=== PATIENT | female | born 1955 | race Caucasian/White ===

== ENCOUNTER 2017-06-03 16:25 | Emergency (ER) | payer OTHER ==
[~2017-06-03] VITALS: Ht 160 cm; Wt 78.2 kg
[2017-06-03 16:37] VITALS: BP 133/83; PULSE 88; RESP 16; O2SAT 98
[2017-06-03 17:02] LABS: BASOPHILS % (AUTO) 0.1 % (0-3); EOSINOPHILS % (AUTO) 2.1 % (0-5); MONOCYTES % (AUTO) 7.1 % (4-12); Mean Corpuscular Hemoglobin 31.4 pg (27.0-35.0); Mean Corpuscular Volume 90.3 fL (81-100); NEUTROPHILS % (AUTO) 77.5 % (40-74); Platelet Count 382 bil/L (150-400)
[2017-06-03 17:21] LABS: Magnesium 2.2 mg/dL (1.6-2.6)
--- NOTE | 2017-06-03 19:17 | ED.REPORT ---
HPI-Abd Pain F 40 and Over Date of Service Jun 03, 2017 ED Provider: Freddie Egan MD Pt is a 61 year old female who presents to the ED with concerns for abdominal pain, onset 4 days ago. She reports that her abdominal pain in localized to her lower abdomen and has been worsening since its onset. Pt states that pain is associated with bloating. She reports a low grade fever, chills, mild nausea, constipation, back pain, and stressful life events, but denies any vomiting, chest pain, diaphoresis, dysuria or shortness of breath. She reports that she was placed on an antibiotic by her PCP for possible dx of diverticulitis. Nursing Notes Stated Complaint: ABDOMINAL PAIN Chief Complaint: Female Abdominal Pain Nursing Notes Reviewed: Yes Allergies: Coded Allergies: No Known Allergies (Verified , 02/29/08) Scheduled Ciprofloxacin (Ciprofloxacin) 500 Mg Tablet 500 MG PO BID Metronidazole (Flagyl) 500 Mg Tablet 500 MG PO Q8H General Time Seen by MD: 19:15 Chief Complaint Abdominal pain Hx Obtained From: Patient Arrived By: Walk-in Sudden in Onset?: Yes Onset Occurred: 4 days ago Symptom Duration: Since onset Location: : Abdomen lower: Diffuse Quality: Painful Severity: Current: Moderate Severity: Maximum: Moderate Similar Sx Previous: Yes Past Medical History Past Medical History Healthy Past Surgical History Denies Review of Systems Constitutional: Reports: Chills, Fever, Denies: Malaise, Weakness - generalized Respiratory: Denies: Non-productive cough, Shortness of breath, Wheezing Cardiovascular: Denies: Chest pain, Syncope GI: Reports: Abdominal pain, Constipation, Nausea, Denies: Diarrhea, Vomiting Female: Denies: Dysuria, Flank pain, Urinary frequency, Urinary urgency Musculoskeletal: Reports: Back pain Complete sys rev & neg: except as marked. Physical Exam Vital Signs Vital Signs (First) Date Time Temp Pulse Resp B/P Pulse Ox O2 Delivery O2 Flow Rate FiO2 06/03/17 16:37 37.1 88 16 133/83 98 Room Air Initial VS: Reviewed Head / Eyes: Atraumatic, Normocephalic, PERRL ENT: Mucous membranes moist, Conjunctiva normal, No scleral icterus Neck: Supple, Non-tender, Full range of motion Skin: Warm, Dry, No cyanosis Neurologic: Alert, Oriented, Nonfocal General/Constitutional: Awake, Alert, Well appearing Respiratory / Chest: Atraumatic, Breath sounds NL, Breath sounds = bilat, No respiratory distress Cardiovascular: Heart rate NL, Regular rhythm, Heart sounds NL, No gallop, No murmurs, No rubs Abdomen: Atraumatic, Soft, No guarding, No rebound Tenderness/Guarding/Rebound: Positive: Tender diffuse Increased lower abdominal tenderness Back: Inspection NL, Non-tender, No CVA tenderness Interpretation & Diagnostics Lab Results Interpretation Result Diagram: 06/03/17 1650 06/03/17 1650 Test 06/03/17 16:50 06/03/17 20:22 White Blood Count 13.4th/mm3 (3.8-10.1) Red Blood Count 4.21mil/mm3 (3.90-5.20) Hemoglobin 13.2g/dL (12.0-15.6) Hematocrit 38.0% (35.0-46.0) Mean Corpuscular Volume 90.3fL (81-100) Mean Corpuscular Hemoglobin 31.4pg (27.0-35.0) Mean Corpuscular Hemoglobin Concent 34.7% (32.0-37.0) Red Cell Distribution Width 12.0% (12.3-15.4) Platelet Count 382bil/L (150-400) Neutrophils (%) (Auto) 77.5% (40-74) Lymphocytes (%) (Auto) 13.0% (14-46) Monocytes (%) (Auto) 7.1% (4-12) Eosinophils (%) (Auto) 2.1% (0-5) Basophils (%) (Auto) 0.1% (0-3) Sodium Level 137mEq/L (134-144) Potassium Level 3.6mEq/L (3.5-5.2) Chloride Level 100mEq/L (97-108) Carbon Dioxide Level 22mmol/L (18-29) Blood Urea Nitrogen 11mg/dL (8-27) Creatinine 0.61mg/dL (0.57-1.00) Estimat Glomerular Filtration Rate 143mL/min (>59) Glucose Level 110mg/dL (60-99) Calcium Level 9.3mg/dL (8.5-10.1) Magnesium Level 2.2mg/dL (1.6-2.6) Total Bilirubin 0.7mg/dL (0.0-1.2) Aspartate Amino Transf (AST/SGOT) 19U/L (0-50) Alanine Aminotransferase (ALT/SGPT) 14U/L (0-32) Alkaline Phosphatase 74U/L (25-165) Total Protein 7.6g/dL (6.4-8.4) Albumin 4.2g/dL (3.4-5.0) Lipase 41U/L (13-60) Hold [place] Top Tube Received (Received) Urine Color Yellow (YELLOW) Urine Appearance Hazy (CLEAR,HAZY) Urine pH 6.0 (5.0-8.0) Urine Specific [place] 1.015 (1.003-1.035) Urine Protein Negativemg/dL (NEG,TRACE) Urine Glucose (UA) Negativemg/dL (NEGATIVE) Urine Ketones 15mg/dL (NEGATIVE) Urine Occult Blood Trace (NEGATIVE) Urine Nitrite Negative (NEGATIVE) Urine Bilirubin Negative (NEGATIVE) Urine Urobilinogen Normalmg/dL (NORMAL) Urine Leukocyte Esterase Negative (NEGATIVE) Urine RBC 0-2/hpf (0-2) Urine WBC 0-5/hpf (0-5) Urine Epithelial Cells Few/hpf (NONE-MOD) Urine Crystals None seen (NONE SEEN) Urine Bacteria None/hpf (NONE-FEW) Urine Hyaline Casts None/lpf (NONE) Urine Granular Casts None seen (NONE SEEN) Urine Waxy Casts None seen (NONE SEEN) Urine Red Blood Cell Casts None seen (NONE SEEN) Urine White Blood Cell Casts None seen (NONE SEEN) Urine Mucus None seen (None Seen) Urine Trichomonas None seen (NONE SEEN) Urine Yeast None (NONE SEEN) Urinalysis Comment None Urine Culture Reflexed Not indicated CT Abd / Pelvis Interpretation IMPRESSION: 1. Non-perforated sigmoid colon diverticulitis. No abscess formation. 2. 3.8 x 2.4 cm enhancing left adrenal nodule is indeterminate for adenoma versus malignancy. If no outside institution chest or abdomen CTs can be obtained for direct comparison, recommend further characterization with nonemergent adrenal protocol pre- and post contrast abdominal CT or noncontrast abdominal MRI. Dictated by: Francis Hobson M.D. on 06/03/2017 at 20:22 Interpretation / Wet Read by: Interpret - Radiologist Re-Eval/Medical Decision Med Decision/Clinical Course 61-year-old female presenting with lower abdominal pain times several days. CT shows nonperforated acute diverticulitis. Patient with minimal tenderness. She was treated with Cipro Flagyl with return precautions follow up with primary doctor Tuesday. [place] diet. Return precautions given. Source of Hx: Old records Re-Evaluation/Progress : Time of Eval: 21:29 Re-Evaluation/Progress Note: Pt is rechecked and informed of her CT scan and the plan to discharge her at this time. Counseled Regarding: Diagnosis, Lab results, Need for follow-up, When/why to return to ED Discharge & Departure Primary Impression: Diverticulitis Disposition: Home Discharge Condition All VS Reviewed: Yes Condition: Stable Patient Instructions: Diverticulitis (ED) Additional Instructions: Take the Ciproflagyl as prescribed. Follow up with your primary care provider on Tuesday, as well as general surgery. Eat a bland diet, and return to the emergency room with any fevers, worsening abdominal pain, or any other worsening or concerning symptoms. Referrals: Cameron Johnson MD (PCP) Radha Attestation Portions of this note were transcribed by Debra Moreau. I, Dr. Egan personally performed the history, physical exam and medical decision-making; I reviewed and confirmed the accuracy of the information in the transcribed note. Signed by:Radha Rothman, 06/03/2017 [id number] copies to: Cameron Johnson MD, Ben M MD Jun 03, 2017 19:17 JOSH MOREAU Jun 03, 2017 19:24
[2017-06-03] MEDS ORDERED: 0.9% Sodium Chloride 1,000 ML IV ONE (19:24)
[2017-06-03] MEDS ORDERED: Ondansetron 2 mg/mL 2 mL Inj IVPUSH PRN (19:25)
[2017-06-03] MEDS ORDERED: HYDROmorphone 1 mg/mL Inj IM PRN (20:30)
--- NOTE | 2017-06-03 20:32 | DRSVH ---
PROCEDURE: CT ABDOMEN AND PELVIS WITH CONTRAST ([id number]) INDICATIONS: 61 year-old female with lower abdominal pain and leukocytosis. TECHNIQUE: After the administration of intravenous contrast, 5 mm thick sections acquired from the diaphragm to the symphysis. 5 mm coronal and sagittal reformats were acquired. For radiation dose reduction, the following was used: automated exposure control, adjustment of mA and/or kV according to patient siz e. COMPARISON: None. FINDINGS: Image quality: Excellent. ABDOMEN: Lung bases: Lung bases are clear. Heart size is normal. Solid organs: Liver and spleen are normal in size and enhancement. Gallbladder is surgically absent . Biliary system is non dilated. Pancreas enhances normally. 3.8 x 2.4 cm left adrenal nodule is pr esent. Right adrenal gland appears normal. Kidneys demonstrate normal size and enhancement, without hydronephrosis. Peritoneum and bowel: Bowel loops demonstrate normal wall thickness and caliber. On axial image 70, there is localized inflammatory fat stranding around the distal sigmoid colon diverticulum. Appendix is surgically absent. No free fluid or air. Nodes and vessels: No retroperitoneal or mesenteric adenopathy by size criteria. Aorta and inferior vena cava are normal in size, with patchy aortic atherosclerosis. Miscellaneous: No ventral hernias. PELVIS: Genitourinary: Bladder wall thickness is normal. The uterus is surgically absent. On axial image 64 , both ovaries appear normal in size. Miscellaneous: No inguinal hernias or adenopathy. Bones: No suspicious bony lesions. No vertebral body compression fractures. There is lower thoraci c spine disc degeneration. There is minimal L4-L5 spondylolisthesis from facet joint degeneration. IMPRESSION: 1. Non-perforated sigmoid colon diverticulitis. No abscess formation. 2. 3.8 x 2.4 cm enhancing left adrenal nodule is indeterminate for adenoma versus malignancy. If no o [facility] institution chest or abdomen CTs can be obtained for direct comparison, recommend further julissa acterization with nonemergent adrenal protocol pre- and post contrast abdominal CT or noncontrast abd ominal MRI. Dictated by: Francis Hobson M.D. on 06/03/2017 at 20:22 Approved by: Francis Hobson M.D. on 06/03/2017 at 20:31
[2017-06-03 20:39] LABS: APPEARANCE,URINE HAZY (CLEAR,HAZY); COLOR,URINE YELLOW (YELLOW)
[2017-06-03 20:40] LABS: OCCULT BLOOD,URINE TRACE (NEGATIVE); UROBILINOGEN,URINE NORMAL (NORMAL)
[2017-06-03 20:45] VITALS: BP 145/83; PULSE 79; RESP 16; O2SAT 99
[2017-06-03] MEDS ORDERED: CIPR-198 PO (21:29)
[2017-06-03] MEDS ORDERED: METR500T PO (21:29)
[2017-06-03] MEDS ORDERED: _HYDROcodone/APAP 5-325 mg Tablet PO PRN (21:30)
[2017-06-03 22:35] VITALS: BP 114/69; PULSE 76; RESP 16; O2SAT 96
== END 2017-06-03 22:43 | disposition home or self-care (01) ==
LOC: SED 16:25
DX: K57.92 Diverticulitis of intestine, part unspecified, without perforation or abscess without bleeding (principal); E27.9 Disorder of adrenal gland, unspecified; R50.9 Fever, unspecified
CPT/HCPCS: 36415; 74177; 80053; 81000; 83690; 83735; 85025; 96372; 96374; 99285; J1170; J2405; J7030; Q9967